=== PATIENT | female | born 1955 | race Caucasian/White ===

== ENCOUNTER 2025-01-14 10:16 | Emergency (ER) | payer OTHER, SELFPAY ==
[2025-01-14 10:18] VITALS: BP 160/76
[2025-01-14 12:33] LABS: Hematocrit 37.5 % (37.0-47.0); Hemoglobin 12.6 g/dL (12.0-16.0); Mean Corp Hgb Conc. 33.6 g/dL (33.0-37.0); Mean Corpuscular Volume 94.9 fL (81.0-99.0); Nucleated Red Blood Cells % 0 %; Platelet Count 183 10^3/uL (130-400); Red Cell Dist. Width 13.1 % (11.5-14.5)
--- NOTE | 2025-01-14 12:38 | ED.GENMED ---
History of Present Illness
General
Chief Complaint: DVT/Possible Blood Clot
Time Seen by Provider: 01/14/25 11:27
History of Present Illness
History of Present Illness:
PAST MEDICAL HISTORY AND REVIEW OF OLD RECORDS
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
Note:
CHIEF COMPLAINT(S)
Pain in the leg.
HISTORY OF PRESENT ILLNESS
The patient is a 69-year-old female with a history of previous blood clots, currently on Warfarin therapy. She presented with leg pain, which she recognized as similar to her past episodes of thrombosis. She noted that her leg, which historically
has been larger than the other due to previous events, felt slightly more swollen but not significantly so. The ultrasound indicated a potential clot in the gastrocnemius vein of the calf. She reports alternating doses of Warfarin, 2.5 mg and 5 mg
every other day, and is generally stable on this dosing. She is pending a current Warfarin level check at the time of the visit. The patient prefers to remain on Warfarin rather than switch to Apixaban, citing concerns about its reversibility.
MEDICATIONS
- Warfarin, alternating doses of 2.5 mg and 5 mg every other day.
- Morphine, as needed.
PHYSICAL EXAM
General: Alert, no acute distress.
Skin: Venous stasis skin changes noted to the distal left lower extremity
Head: Normocephalic, atraumatic.
Neck: Supple, trachea midline.
Eye, Ears, Nose, Mouth, and Throat: Oral mucosa moist.
Cardiovascular: Normal peripheral perfusion, No edema.
Respiratory: Respirations are non-labored.
Gastrointestinal: Abdomen nondistended.
Back: Normal range of motion, Normal alignment.
Musculoskeletal: Left lower extremity is slightly larger than the right lower extremity which patient states is chronic
Neurological: Alert and oriented to person, place, time, and situation, No focal neurological deficit observed.
Psychiatric: Cooperative, appropriate mood & affect.
PROBLEM LIST
Acute: Clot in gastrocnemius vein, Leg pain.
PLAN
- Await Warfarin level results to determine further management.
- Discuss results and potential need for temporary additional anticoagulation with Low Molecular Weight Heparin if Warfarin levels are subtherapeutic.
- Consider hematology consult for further management based on lab results.
DIFFERENTIAL DIAGNOSIS
The Differential Diagnosis includes, in no particular order and is not limited to:
1. Deep vein thrombosis
2. Muscle strain
3. Hematoma
4. Cellulitis
5. Chronic venous insufficiency
6. Lymphedema
7. Compartment syndrome
8. Peripheral artery disease
9. Infection
10. Joint pathology
SUMMARY OF ENCOUNTER
The patient presented with leg pain and was concerned about a potential clot in the gastrocnemius vein, similar to her previous thrombosis episodes. Her INR level was noted to be subtherapeutic at 1.7, which raised concerns about adequate
anticoagulation. An alternative treatment plan involving enoxaparin was discussed with the patient. The decision was made to start enoxaparin, allowing it to act while maintaining Warfarin therapy. The patient was advised to take enoxaparin twice
daily for the next couple of days while adjusting the Warfarin dosage to raise the INR level to the therapeutic range.
ASSESSMENT
The patient has a potential blood clot in the gastrocnemius vein of the calf, with a subtherapeutic INR level of 1.7 on Warfarin therapy. Consideration of dual anticoagulation therapy with enoxaparin and Warfarin was advised to stabilize
anticoagulation quickly.
PLAN
The plan includes administering enoxaparin (Lovenox) at home twice daily for the next two days and adjusting the Warfarin dosage. The patient was advised to take an additional 2.5 mg of Warfarin today, followed by 5 mg on the subsequent days. INR
will be rechecked on Tuesday or . Patient education on potential bleeding risks was provided. Additionally, contacting a sales support specialist for follow-up care was recommended.
INDEPENDENT REVIEW OF LABS AND INTERPRETATION OF TESTS
My independent review of the INR test indicates it was at 1.7, which is below the therapeutic range for anticoagulation.
PATIENT EDUCATION AND COUNSELING
The patient was educated on the importance of managing anticoagulation therapy, recognizing symptoms of bleeding, and scheduling timely INR checks. The need for adhering to medication therapy with Warfarin and enoxaparin was discussed. Alternate
treatment pathways and their corresponding risks were explained, and patient questions about travel safety were addressed, given the location and size of the clot.
FOLLOW-UP INSTRUCTIONS
The patient was advised to check INR levels Tuesday or and to schedule an appointment with a [facility] sales support specialist if possible.
MEDICATION RECONCILIATION
- Warfarin: An additional 2.5 mg today, with 5 mg dosages continuing on the following days.
- Enoxaparin (Lovenox): Begin taking at home twice daily for the next two days.
MEDICAL DECISION MAKING
- Number and Complexity of Problems Addressed: Chronic conditions affecting care including history of blood clots. Differential diagnosis included deep vein thrombosis, muscle strain, hematoma, cellulitis, chronic venous insufficiency, lymphedema,
compartment syndrome, peripheral artery disease, infection, and joint pathology.
- Data:
- Category 1: INR test reviewed, showing a subtherapeutic level.
- Category 3: Attempted consultation with hematology, with plans to consider long-term follow-up.
- Risk: Prescription drug management with Warfarin and enoxaparin was discussed, recognizing the potential risk of bleeding if not managed correctly.
DIAGNOSIS
- Anticoagulation therapy monitoring and management due to insufficient INR (ICD-10: Z79.01)
- Venous thromboembolism (ICD-10: I82.499)
The patient was advised that enoxaparin would provide immediate action while adjustments to the Warfarin would optimize long-term care.
RADIOLOGY
- Ultrasound shows DVT in the left gastroc vein
- I discussed case with Dr. Medina, on-call sales support specialist who agrees with plan
Past History
Past History
ED Past Medical History: Other (DVT)
Social History
Tobacco: Non-smoker (second hand smoke)
Personal:
Phy Exam
Physical Exam
Physical Exam:
See HPI
Course
Orders/Labs/Results
Orders:
Orders
01/14/25 10:30
Legs, left US [US Periph Venous LOWER Ext LT] Urgent
Comment:
Reason For Exam: pain, bruising, hx of DVTs
01/14/25 12:23
Basic Metabolic Panel Urgent
Complete Blood Count/With Diff Urgent
Prothrombin Time Urgent
Abnormal Lab Results
01/14/25
12:23
RBC 3.95 L 10^6/uL
(4.20-5.40)
MCH 31.9 H pg
(27.0-31.0)
PT 20.4 H Sec
(11.4-14.6)
BUN 31 H mg/dl
(7-17)
01/14/25 12:23
01/14/25 12:23
Vital Signs
Initial and Last Documented VS:
Initial Vital Signs
Temp Pulse Resp BP Pulse Ox
37.0 C 85 22 160/76 96
01/14/25 10:18 01/14/25 10:18 01/14/25 10:18 01/14/25 10:18 01/14/25 10:18
Last Documented Vital Signs
Temp Pulse Resp BP Pulse Ox
37.0 C 85 22 160/76 96
01/14/25 10:18 01/14/25 10:18 01/14/25 10:18 01/14/25 10:18 01/14/25 12:40
*Pulse Oximetry
SaO2: 96
Oxygen Mode of Delivery: Room air
Patient hypoxic: no
*Critical Care Note
Total Time (30-74mins, 75-104mins- exclusive of procedures): Not Applicable
ED Attending Note
-
Portions of this chart may have been created with voice recognition software.� Occasional wrong word or��sound alike� substitutions may have occurred due to the inherent limitations of voice recognition software.
Discharge Plan
Departure
Patient Disposition: Home (Routine Discharge)
Date of Disposition: 01/14/25
Time of Disposition: 13:43
Patient with high blood pressure during this ER visit?: Yes
Discharge Problem:
DVT (deep venous thrombosis)
Prescriptions:
No Action
warfarin [Jantoven] 7.5 MG tablet
7.5 mg PO DAILY
methylprednisolone 4 MG tablet
4 mg PO DAILY
Daily Multiple Vitamin
Fish Oil
PO DAILY
Zithromax Z-Marcus
DAILY
hydrocodone-acetaminophen [Vicodin] 1 EACH tablet
1 ea PO Q4HPRN PRN (Reason: cough) Qty: 15 0RF
albuterol sulfate [Ventolin HFA] 90 MCG/PUFF HFA aerosol inhaler
1 puff inhalation Q4HPRN PRN (Reason: cough) Qty: 1 0RF
Referrals:
Sejal Smith MD [Active, Hematology / Oncology]
Rufino Cobos MD [Family Provider, Family Practice]
Activity Restrictions/Additional Instructions:
The ultrasound shows a DVT in the left gastrocnemius vein but fortunately there is no clot in the common femoral, femoral, or popliteal veins. I recommend that you take another 2.5 mg dose of Coumadin today. I recommend that you take 5 mg of
Coumadin on Tuesday and 5 mg of Coumadin on Tuesday. You could then resume your normal dosing. I also recommend that you take the Lovenox twice daily today and tomorrow. Have your INR checked on Tuesday or . I am also given you the
contact information for a local sales support specialist, Dr. Smith.
Interventions
Interventions:
*Risk Screen - Suicide Last Done: 01/14/25 10:18
*Neglect/Abuse Screening Last Done: 01/14/25 10:18
*ED COVID-19 Vaccine History Last Done: 01/14/25 11:47
ED- Cardiac Assessment Last Done: 01/14/25 11:45
ED- Pulmonary Assessment Last Done: 01/14/25 11:45
ED-Peripheral Vascular Assessment Last Done: 01/14/25 11:45
ED-Skin Assessment Last Done: 01/14/25 11:45
Discharge Date and Time
Print Language: LEBANESE
[2025-01-14 12:47] LABS: INR 1.72; PT 20.4 Sec (11.4-14.6)
[2025-01-14 12:48] LABS: Blood Urea Nitrogen 31 mg/dl (7-17); Calcium 9.5 mg/dl (8.4-10.2); Carbon Dioxide 30 mmol/L (22-30); Chloride 105 mmol/L (98-107); Glucose 86 mg/dl (70-99); Potassium 4.2 mmol/L (3.5-5.1); Sodium 139 mmol/L (135-145); eGFR > 60.00
== END 2025-01-14 13:58 | disposition home or self-care (01) ==
LOC: EMR 10:16
PROVIDERS: EMERGENCY PHYSICIAN Emergency Medicine; FAMILY PHYSICIAN Family Medicine
DX: I82.462 Acute embolism and thrombosis of left calf muscular vein (principal); Z86.718 Personal history of other venous thrombosis and embolism; Z79.01 Long term (current) use of anticoagulants
CPT/HCPCS: 99284; 80048; 85025; 85610; 93971

== ENCOUNTER → 2025-02-18 11:00 | Outpatient (REF) | payer OTHER, SELFPAY | LOC: HWRAD 11:00 | PROVIDERS: ATTENDING PHYSICIAN Internal Medicine Hematology & Oncology; FAMILY PHYSICIAN Family Medicine | DX: I82.402 Acute embolism and thrombosis of unspecified deep veins of left lower extremity (principal) | CPT/HCPCS: 93971 ==